=== PATIENT | male | born 1945 | race Caucasian/White ===

== ENCOUNTER 2020-10-29 12:26 | Inpatient (IN) ==
[2020-10-29] MEDS ORDERED: SODIUM CHLORIDE 0.9% 1,000 ML IV STA (12:57)
[2020-10-29 13:07] LABS: Basophils % 0.3 % (0.0-0.8); Eosinophils # 0.2 10*3/uL (0.0-0.87); Eosinophils % 2.4 % (0.00-10.9); Hematocrit 33.8 VOL% (42.0-52.0); Hemoglobin 11.9 GM/DL (14.0-18.0); Immature Granulocytes % 1.6 %; Immature Granulocytes Absolute 0.16 #; Lymphocytes # 0.4 10*3/uL (1.4-4.0); Lymphocytes % 3.6 % (21.2-54.2); Mean Corpuscular HGB Conc 35.2 GM/DL (32-36); Mean Corpuscular Volume 87.1 FL (87-102); Mean Platelet Volume 10.8 FL (9.6-12.0); Neutrophils % 87.1 % (38.7-73.9); Platelet Count 281 T/CUMM (130-400); Red Blood Count 3.88 MC/CUMM (3.8-5.5); Red Cell Distribution Width 14.2 % (9.3-17.3); White Blood Count 9.9 T/CUMM (4-12)
[2020-10-29 13:34] LABS: Albumin 2.3 G/DL (3.4-5.0); Bilirubin,Total 2.6 MG/DL (0.2-1.0); Calcium 9.3 MG/DL (8.5-10.1); Osmolality,Calculated 294.4 MOS/KG (273-304); Potassium 4.3 MMOL/L (3.5-5.1); Total Protein 6.4 G/DL (6.4-8.2)
[2020-10-29 13:37] LABS: Bacteria,Urine Occasional /HPF (Few); Bilirubin,Urine Negative (Negative); Blood, Urine Small mg/dL (Negative); Glucose,Urine (UA) Negative (Negative); Ketones,Urine Negative (Negative); Mucus,Urine Occasional /LPF (Occasional); Nitrite,Urine Negative (Negative); Protein,Urine Negative; RBC,Urine 1 /HPF (0-4); Urine Appearance CLEAR (Clear); Urine Color Amber (Yellow); Urine Specific Gravity 1.012 (1.001-1.035); WBC,Urine 9 /HPF (0-6)
[2020-10-29 13:50] LABS: Lymphocytes 7 % (20-55); Segmented Neutrophils 88 % (50-85); Total Cells Counted 100
[2020-10-29 13:51] LABS: Platelet Estimate Adequate
[2020-10-29] MEDS ORDERED: SODIUM CHLORIDE 0.9% 1,000 ML IV SCH (14:00)
[2020-10-29] MEDS ORDERED: MAGNESIUM HYDROXIDE SUSP 30 ML UDCUP PO PRN (17:23)
[2020-10-29] MEDS ORDERED: ACETAMINOPHEN 325 MG TABLET PO PRN (17:23)
[2020-10-29] MEDS ORDERED: ONDANSETRON 4 MG/2 ML VIAL IV PRN (17:23)
[2020-10-29] MEDS ORDERED: ZALEPLON 5 MG CAPSULE PO PRN (17:32)
[2020-10-29] MEDS: DEXTROSE 5% NACL 0.9% 1,000 ML IV SCH (18:18)
[2020-10-29] MEDS: cefTRIAXone 1,000 MG in SYRINGE 1 EACH IV SCH (18:18)
[2020-10-29] MEDS: DOCUSATE SODIUM 100 MG CAPSULE PO SCH (20:34)
[2020-10-30] MEDS: DEXTROSE 5% NACL 0.9% 1,000 ML IV SCH ×4 (00:44→23:12)
[2020-10-30 06:15] LABS: Basophils % 0.3 % (0.0-0.8); Eosinophils # 0.6 10*3/uL (0.0-0.87); Eosinophils % 6.1 % (0.00-10.9); Hematocrit 31.8 VOL% (42.0-52.0); Immature Granulocytes % 0.5 %; Immature Granulocytes Absolute 0.05 #; Lymphocytes # 0.4 10*3/uL (1.4-4.0); Lymphocytes % 4.4 % (21.2-54.2); Mean Corpuscular HGB Conc 34.6 GM/DL (32-36); Mean Corpuscular Volume 87.6 FL (87-102); Mean Platelet Volume 11.2 FL (9.6-12.0); Monocytes % 5.1 % (1.7-12.7); Neutrophils % 83.6 % (38.7-73.9); Platelet Count 252 T/CUMM (130-400); Red Blood Count 3.63 MC/CUMM (3.8-5.5); Red Cell Distribution Width 14.3 % (9.3-17.3)
[2020-10-30 06:52] LABS: Band Neutrophils 2 % (0-10); Eosinophils 3 % (0-10); Lymphocytes 6 % (20-55); Platelet Estimate Normal; Polychromasia Slight; Reactive Lymphocytes Few; Segmented Neutrophils 84 % (50-85); Total Cells Counted 100
[2020-10-30 06:53] LABS: Microcytosis Slight
[2020-10-30 07:10] LABS: Alanine Aminotransferase 128 U/L (16-61); Albumin 2.1 G/DL (3.4-5.0); Alkaline Phosphatase 182 U/L (45-117); Aspartate Amino Transferase 84 U/L (0-37); Blood Urea Nitrogen 86 MG/DL (7-18); Calcium 8.8 MG/DL (8.5-10.1); Carbon Dioxide 14 MMOL/L (21-32); Estimated Glom Filtration Rate 11 ML/MIN; Glucose 153 MG/DL (74-106); Potassium 4.1 MMOL/L (3.5-5.1); Sodium 136 MMOL/L (136-145); Triglycerides 295 MG/DL (2-150)
[2020-10-30 07:30] LABS: HDL Cholesterol < 10 MG/DL (40-60)
[2020-10-30] MEDS: LOSARTAN 50 MG TABLET PO SCH (08:20)
[2020-10-30] MEDS: DOCUSATE SODIUM 100 MG CAPSULE PO SCH ×2 (08:20→21:04)
[2020-10-30] MEDS: FENOFIBRATE 160 MG TABLET PO SCH (08:21)
[2020-10-30] MEDS: TAMSULOSIN 0.4 MG CAPSULE PO SCH (08:21)
[2020-10-30] MEDS: PANTOPRAZOLE 40 MG TABLET PO SCH (08:21)
[2020-10-30] MEDS: SIMVASTATIN 20 MG TABLET PO SCH (08:22)
[2020-10-30] MEDS ORDERED: PIPERACILLIN/TAZOBACTAM 3,375 MG in SODIUM CHLORIDE 0.9% 100 ML IV SCH (11:00)
[2020-10-30] MEDS ORDERED: MEROPENEM 500 MG in SODIUM CHLORIDE 0.9% 100 ML IV SCH (12:00)
[2020-10-30] MEDS: cefTRIAXone 1,000 MG in SYRINGE 1 EACH IV SCH (18:07)
[2020-10-31 05:01] LABS: Basophils # 0.1 10*3/uL (0.0-0.2); Basophils % 0.5 % (0.0-0.8); Eosinophils # 0.3 10*3/uL (0.0-0.87); Eosinophils % 3.1 % (0.00-10.9); Hematocrit 32.5 VOL% (42.0-52.0); Hemoglobin 11.5 GM/DL (14.0-18.0); Immature Granulocytes % 0.9 %; Immature Granulocytes Absolute 0.09 #; Lymphocytes # 0.5 10*3/uL (1.4-4.0); Lymphocytes % 5.2 % (21.2-54.2); Mean Corpuscular HGB Conc 35.4 GM/DL (32-36); Mean Corpuscular Volume 86.7 FL (87-102); Mean Platelet Volume 11.2 FL (9.6-12.0); Monocytes % 5.5 % (1.7-12.7); Neutrophils % 84.8 % (38.7-73.9); Platelet Count 260 T/CUMM (130-400); Red Blood Count 3.75 MC/CUMM (3.8-5.5); Red Cell Distribution Width 14.8 % (9.3-17.3); White Blood Count 10.1 T/CUMM (4-12)
[2020-10-31 05:23] LABS: Albumin 2.1 G/DL (3.4-5.0); Bilirubin,Total 2.6 MG/DL (0.2-1.0); Calcium 8.6 MG/DL (8.5-10.1); Osmolality,Calculated 294.7 MOS/KG (273-304); Potassium 4.6 MMOL/L (3.5-5.1); Total Protein 6.4 G/DL (6.4-8.2)
[2020-10-31 05:24] LABS: Uric Acid 5.4 MG/DL (3.5-7.2)
[2020-10-31] MEDS: DEXTROSE 5% NACL 0.9% 1,000 ML IV SCH ×2 (06:15→17:52)
[2020-10-31] MEDS: LOSARTAN 50 MG TABLET PO SCH (09:19)
[2020-10-31] MEDS: DOCUSATE SODIUM 100 MG CAPSULE PO SCH ×2 (09:19→23:15)
[2020-10-31] MEDS: PANTOPRAZOLE 40 MG TABLET PO SCH (09:19)
[2020-10-31] MEDS: FENOFIBRATE 160 MG TABLET PO SCH (09:19)
[2020-10-31] MEDS: TAMSULOSIN 0.4 MG CAPSULE PO SCH (09:19)
[2020-10-31] MEDS: SIMVASTATIN 20 MG TABLET PO SCH (09:46)
[2020-10-31] MEDS: methylPREDNISolone SOD SUC 40 MG/1 ML VIAL IV SCH ×2 (09:46→17:53)
[2020-10-31] MEDS ORDERED: chlordiazePOXIDE 25 MG CAPSULE PO PRN (10:39)
[2020-10-31] MEDS: THIAMINE 100 MG TABLET PO SCH (12:05)
[2020-10-31] MEDS: FOLIC ACID 1 MG TABLET PO SCH (12:05)
[2020-10-31] MEDS: MULTIVITAMIN (CENTRUM) TABLET PO SCH (12:05)
[2020-10-31] MEDS: cefTRIAXone 1,000 MG in SYRINGE 1 EACH IV SCH (17:53)
[2020-10-31] MEDS: CLORAZEPATE 3.75 MG TABLET PO SCH (23:16)
[2020-11-01] MEDS: DEXTROSE 5% NACL 0.9% 1,000 ML IV SCH ×5 (00:03→21:32)
[2020-11-01] MEDS: methylPREDNISolone SOD SUC 40 MG/1 ML VIAL IV SCH (01:07)
[2020-11-01 05:52] LABS: Basophils % 0.1 % (0.0-0.8); Hematocrit 35.9 VOL% (42.0-52.0); Hemoglobin 12.2 GM/DL (14.0-18.0); Immature Granulocytes % 1.1 %; Immature Granulocytes Absolute 0.11 #; Lymphocytes # 0.5 10*3/uL (1.4-4.0); Lymphocytes % 4.8 % (21.2-54.2); Mean Platelet Volume 11.5 FL (9.6-12.0); Monocytes % 2.3 % (1.7-12.7); Neutrophils % 91.7 % (38.7-73.9); Platelet Count 307 T/CUMM (130-400); Red Blood Count 3.99 MC/CUMM (3.8-5.5); Red Cell Distribution Width 14.9 % (9.3-17.3); White Blood Count 9.9 T/CUMM (4-12)
[2020-11-01 06:13] LABS: Albumin 2.1 G/DL (3.4-5.0); Bilirubin,Total 1.7 MG/DL (0.2-1.0); Calcium 9.1 MG/DL (8.5-10.1); Osmolality,Calculated 299.5 MOS/KG (273-304); Potassium 4.8 MMOL/L (3.5-5.1); Total Protein 6.9 G/DL (6.4-8.2); Uric Acid 4.8 MG/DL (3.5-7.2)
[2020-11-01 06:51] LABS: Hepatitis B Core IgM Quant 0.07 Index; Hepatitis B Surface Ag Quant < 0.10 Index; Hepatitis B Surface Ag Result Non-Reactive (NonReactive); Hepatitis C Virus Ab Quant 0.15 Index; Hepatitis C Virus Ab Result Non-Reactive (NonReactive)
[2020-11-01 07:03] LABS: Lymphocytes 9 % (20-55); Platelet Estimate Normal; Segmented Neutrophils 88 % (50-85); Total Cells Counted 100
[2020-11-01] MEDS: MULTIVITAMIN (CENTRUM) TABLET PO SCH (08:26)
[2020-11-01] MEDS: cloNIDine 0.1 MG TABLET PO SCH ×2 (08:26→21:36)
[2020-11-01] MEDS: LOSARTAN 50 MG TABLET PO SCH (08:26)
[2020-11-01] MEDS: FENOFIBRATE 160 MG TABLET PO SCH (08:26)
[2020-11-01] MEDS: PANTOPRAZOLE 40 MG TABLET PO SCH (08:26)
[2020-11-01] MEDS: CLORAZEPATE 3.75 MG TABLET PO SCH ×3 (08:27→21:36)
[2020-11-01] MEDS: DOCUSATE SODIUM 100 MG CAPSULE PO SCH ×2 (08:27→22:05)
[2020-11-01] MEDS: THIAMINE 100 MG TABLET PO SCH (08:27)
[2020-11-01] MEDS: TAMSULOSIN 0.4 MG CAPSULE PO SCH ×2 (08:27→21:36)
[2020-11-01] MEDS: allopurinoL 100 MG TABLET PO SCH ×2 (08:27→21:36)
[2020-11-01] MEDS: FOLIC ACID 1 MG TABLET PO SCH (08:29)
[2020-11-01] MEDS: SIMVASTATIN 20 MG TABLET PO SCH (08:29)
[2020-11-01] MEDS: cefTRIAXone 1,000 MG in SYRINGE 1 EACH IV SCH (18:04)
[2020-11-02] MEDS: DEXTROSE 5% NACL 0.9% 1,000 ML IV SCH ×3 (04:00→17:28)
[2020-11-02 05:41] LABS: Basophils % 0.2 % (0.0-0.8); Eosinophils # 0.1 10*3/uL (0.0-0.87); Eosinophils % 0.9 % (0.00-10.9); Hematocrit 30.2 VOL% (42.0-52.0); Hemoglobin 10.4 GM/DL (14.0-18.0); Immature Granulocytes % 2.6 %; Immature Granulocytes Absolute 0.22 #; Lymphocytes # 0.9 10*3/uL (1.4-4.0); Lymphocytes % 10.9 % (21.2-54.2); Mean Corpuscular HGB Conc 34.4 GM/DL (32-36); Mean Corpuscular Volume 88.6 FL (87-102); Mean Platelet Volume 11.1 FL (9.6-12.0); Neutrophils % 79.4 % (38.7-73.9); Platelet Count 360 T/CUMM (130-400); Red Blood Count 3.41 MC/CUMM (3.8-5.5); Red Cell Distribution Width 15.2 % (9.3-17.3); White Blood Count 8.5 T/CUMM (4-12)
[2020-11-02 05:57] LABS: Albumin 1.8 G/DL (3.4-5.0); Osmolality,Calculated 297.5 MOS/KG (273-304); Potassium 4.5 MMOL/L (3.5-5.1); Total Protein 5.8 G/DL (6.4-8.2)
[2020-11-02 06:03] LABS: Hypochromasia 1+; Lymphocytes 8 % (20-55); Microcytosis 1+; Platelet Estimate Adequate; Segmented Neutrophils 86 % (50-85); Total Cells Counted 100
[2020-11-02] MEDS: methylPREDNISolone SOD SUC 40 MG/1 ML VIAL IV SCH ×2 (08:30→21:21)
[2020-11-02] MEDS: MULTIVITAMIN (CENTRUM) TABLET PO SCH (08:31)
[2020-11-02] MEDS: allopurinoL 100 MG TABLET PO SCH ×2 (08:31→21:16)
[2020-11-02] MEDS: SIMVASTATIN 20 MG TABLET PO SCH (08:31)
[2020-11-02] MEDS: cloNIDine 0.1 MG TABLET PO SCH ×2 (08:31→21:16)
[2020-11-02] MEDS: FENOFIBRATE 160 MG TABLET PO SCH (08:31)
[2020-11-02] MEDS: DOCUSATE SODIUM 100 MG CAPSULE PO SCH ×2 (08:31→21:16)
[2020-11-02] MEDS: TAMSULOSIN 0.4 MG CAPSULE PO SCH ×2 (08:31→21:16)
[2020-11-02] MEDS: LOSARTAN 50 MG TABLET PO SCH (08:31)
[2020-11-02] MEDS: PANTOPRAZOLE 40 MG TABLET PO SCH (08:31)
[2020-11-02] MEDS: THIAMINE 100 MG TABLET PO SCH (08:31)
[2020-11-02] MEDS: FOLIC ACID 1 MG TABLET PO SCH (08:32)
[2020-11-02] MEDS: CLORAZEPATE 3.75 MG TABLET PO SCH ×4 (08:32→21:16)
[2020-11-02] MEDS: cefTRIAXone 1,000 MG in SYRINGE 1 EACH IV SCH (17:28)
[2020-11-03] MEDS: DEXTROSE 5% NACL 0.9% 1,000 ML IV SCH ×2 (00:15→06:54)
[2020-11-03 05:02] LABS: Basophils % 0.3 % (0.0-0.8); Hematocrit 29.5 VOL% (42.0-52.0); Hemoglobin 10.2 GM/DL (14.0-18.0); Immature Granulocytes % 4.1 %; Lymphocytes # 0.5 10*3/uL (1.4-4.0); Lymphocytes % 6.6 % (21.2-54.2); Mean Corpuscular HGB Conc 34.6 GM/DL (32-36); Mean Corpuscular Volume 87.5 FL (87-102); Mean Platelet Volume 11.1 FL (9.6-12.0); Monocytes % 2.7 % (1.7-12.7); Neutrophils % 86.3 % (38.7-73.9); Platelet Count 339 T/CUMM (130-400); Red Blood Count 3.37 MC/CUMM (3.8-5.5); Red Cell Distribution Width 15.1 % (9.3-17.3); White Blood Count 7.3 T/CUMM (4-12)
[2020-11-03 05:42] LABS: Albumin 1.8 G/DL (3.4-5.0); Bilirubin,Total 1.6 MG/DL (0.2-1.0); Calcium 8.9 MG/DL (8.5-10.1); Osmolality,Calculated 298.5 MOS/KG (273-304); Potassium 5.1 MMOL/L (3.5-5.1)
[2020-11-03] MEDS: methylPREDNISolone SOD SUC 40 MG/1 ML VIAL IV SCH (08:16)
[2020-11-03] MEDS: cloNIDine 0.1 MG TABLET PO SCH (08:20)
[2020-11-03] MEDS: SIMVASTATIN 20 MG TABLET PO SCH (08:21)
[2020-11-03] MEDS: CLORAZEPATE 3.75 MG TABLET PO SCH (08:21)
[2020-11-03] MEDS: FENOFIBRATE 160 MG TABLET PO SCH (08:23)
[2020-11-03] MEDS: MULTIVITAMIN (CENTRUM) TABLET PO SCH (08:23)
[2020-11-03] MEDS: THIAMINE 100 MG TABLET PO SCH (08:24)
[2020-11-03] MEDS: allopurinoL 100 MG TABLET PO SCH (08:24)
[2020-11-03] MEDS: PANTOPRAZOLE 40 MG TABLET PO SCH (08:24)
[2020-11-03] MEDS: DOCUSATE SODIUM 100 MG CAPSULE PO SCH (08:25)
[2020-11-03] MEDS: TAMSULOSIN 0.4 MG CAPSULE PO SCH (08:25)
[2020-11-03] MEDS: FOLIC ACID 1 MG TABLET PO SCH (08:28)
[2020-11-03] MEDS: LOSARTAN 50 MG TABLET PO SCH (08:29)
[2020-11-03] MEDS ORDERED: SULFAMETHOX/TRIMETHOPRIM 400-80 MG TABLET PO SCH (11:00)
[2020-11-03] MEDS ORDERED: predniSONE 10 MG TABLET PO SCH (11:00)
[2020-11-03 11:11] VITALS: BP 148/74
== END 2020-11-03 13:14 | disposition home or self-care (01) | DRG 862 ==
LOC: EDUNIT# → EDBD → N.ED 12:26 → N.EDINP 13:57 → N.5E 15:27
PROVIDERS: ADMIT Family Medicine; ATTEND Family Medicine

== ENCOUNTER 2020-12-15 05:51 | Inpatient (IN) ==
[2020-12-15] MEDS ORDERED: POTASSIUM CHLORIDE RIDER 10 MEQ in PREMIX 1 EACH IV PRN (06:19)
[2020-12-15] MEDS ORDERED: MAGNESIUM SULF RIDER 2 GM/50 ML PREMIX IV PRN (06:19)
[2020-12-15] MEDS ORDERED: diphenhydrAMINE CAP 50 MG CAPSULE PO ONE (06:19)
[2020-12-15] MEDS ORDERED: ASPIRIN 325 MG TABLET PO ONE (06:19)
[2020-12-15] MEDS ORDERED: DIAZEPAM 5 MG TABLET PO ONE (06:19)
[2020-12-15] MEDS ORDERED: DIAZEPAM 5 MG TABLET ONE (06:28)
[2020-12-15] MEDS ORDERED: diphenhydrAMINE CAP 50 MG CAPSULE ONE (06:28)
[2020-12-15] MEDS ORDERED: ASPIRIN 325 MG TABLET ONE (06:28)
[2020-12-15] MEDS: SODIUM CHLORIDE 0.9% 1,000 ML IV SCH ×3 (06:31→16:56)
[2020-12-15] MEDS ORDERED: LIDOCAINE 1% 20 ML VIAL ONE (06:48)
[2020-12-15] MEDS ORDERED: HEPARIN/NACL 0.9% 2 UNITS/ML 2,000 UNIT/1,000 ML BAG IV ONE (06:48)
[2020-12-15] MEDS ORDERED: MIDAZOLAM 2 MG/2 ML VIAL ONE (07:14)
[2020-12-15] MEDS ORDERED: NITROGLYCERIN DRIP 50 MG/250 ML BOTTLE IV ONE ×2 (07:14→08:02)
[2020-12-15] MEDS ORDERED: VERAPAMIL 5 MG/2 ML VIAL ONE (07:15)
[2020-12-15] MEDS ORDERED: HYDROmorphone 2 MG/1 ML VIAL ONE (07:15)
[2020-12-15] MEDS ORDERED: diphenhydrAMINE 50 MG/1 ML VIAL ONE (07:27)
[2020-12-15] MEDS ORDERED: ENOXAPARIN 30 MG/0.3 ML SYRINGE ONE (07:30)
[2020-12-15] MEDS ORDERED: NITROGLYCERIN SL 0.4 MG TABLET SL ONE (07:47)
[2020-12-15] MEDS ORDERED: HEPARIN DRIP 25,000 UNITS/500 ML PREMIX IV ONE (08:02)
[2020-12-15] MEDS ORDERED: HEPARIN 5,000 UNIT/1 ML VIAL ONE (08:02)
[2020-12-15] MEDS ORDERED: HEPARIN 5,000 UNIT/1 ML VIAL IV ONE ×2 (08:08→20:36)
[2020-12-15] MEDS: NITROGLYCERIN DRIP 50 MG/250 ML BOTTLE IV PRN (08:26)
[2020-12-15] MEDS: HEPARIN DRIP 25,000 UNITS/500 ML PREMIX IV SCH (08:34)
[2020-12-15] MEDS ORDERED: PNEUMOCOCCAL VACCINE (13 VALENT) 0.5 ML SYRINGE IM ONE (09:21)
[2020-12-15] MEDS ORDERED: DEXTROSE 50% 25 GM/50 ML VIAL IV PRN (12:29)
[2020-12-15] MEDS ORDERED: GLUCAGON 1 MG VIAL IM PRN (12:29)
[2020-12-15] MEDS: LOSARTAN 50 MG TABLET PO SCH (13:57)
[2020-12-15] MEDS: cloNIDine 0.1 MG TABLET PO SCH (20:51)
[2020-12-16] MEDS: SODIUM CHLORIDE 0.9% 1,000 ML IV SCH ×2 (02:32→14:45)
[2020-12-16] MEDS: HEPARIN 5,000 UNIT/1 ML VIAL IV PRN ×2 (03:05→17:32)
[2020-12-16 06:51] LABS: Basophils # 0.1 10*3/uL (0.0-0.2); Basophils % 0.8 % (0.0-0.8); Eosinophils # 0.3 10*3/uL (0.0-0.87); Eosinophils % 3.2 % (0.00-10.9); Hematocrit 33.6 VOL% (42.0-52.0); Hemoglobin 10.9 GM/DL (14.0-18.0); Immature Granulocytes % 1.2 %; Immature Granulocytes Absolute 0.09 #; Lymphocytes # 1.4 10*3/uL (1.4-4.0); Lymphocytes % 18.3 % (21.2-54.2); Mean Corpuscular HGB Conc 32.4 GM/DL (32-36); Mean Corpuscular Volume 94.4 FL (87-102); Mean Platelet Volume 10.5 FL (9.6-12.0); Monocytes % 7.2 % (1.7-12.7); Neutrophils % 69.3 % (38.7-73.9); Platelet Count 191 T/CUMM (130-400); Red Blood Count 3.56 MC/CUMM (3.8-5.5); Red Cell Distribution Width 15.8 % (9.3-17.3); White Blood Count 7.7 T/CUMM (4-12)
[2020-12-16 07:23] LABS: Albumin 3.1 G/DL (3.4-5.0); Bilirubin,Total 0.4 MG/DL (0.2-1.0); Calcium 9.1 MG/DL (8.5-10.1); Osmolality,Calculated 287.3 MOS/KG (273-304)
[2020-12-16] MEDS ORDERED: CLORAZEPATE 3.75 MG TABLET PO PRN (08:10)
[2020-12-16] MEDS: cloNIDine 0.1 MG TABLET PO SCH ×2 (08:22→20:21)
[2020-12-16] MEDS: LOSARTAN 50 MG TABLET PO SCH (08:22)
[2020-12-16] MEDS: CHLORHEXIDINE 0.12% ORAL RINSE 60 ML BOTTLE SWISH/SPIT SCH ×2 (08:22→20:21)
[2020-12-16 09:34] LABS: ABG Base Excess -3.5 MMOL/L (-2.5-2.5); ABG HCO3 20.4 MMOL/L (20-26); ABG Oxygen Saturation 96.5 % (95-100); ABG PCO2 32.8 MM HG (35-48); ABG PH 7.411 (7.35-7.45); ABG PO2 86.3 MM HG (80-95); ABG TCO2 21.4 MMOL/L (23-27); Allen Test Positive
[2020-12-16] MEDS: NITROGLYCERIN DRIP 50 MG/250 ML BOTTLE IV PRN (10:51)
[2020-12-16] MEDS: HEPARIN DRIP 25,000 UNITS/500 ML PREMIX IV SCH (14:13)
[2020-12-16] MEDS ORDERED: FAMOTIDINE 20 MG TABLET PO ONE (15:06)
[2020-12-16] MEDS ORDERED: DIAZEPAM 5 MG TABLET PO ONE (15:06)
[2020-12-16] MEDS: CHLORHEXIDINE 4% SOLN 118 ML BOTTLE TOP SCH ×2 (15:26→20:34)
[2020-12-16] MEDS: ASPIRIN EC 81 MG TABLET PO SCH (17:25)
[2020-12-16] MEDS: METOPROLOL TARTRATE 25 MG TABLET PO SCH ×2 (17:25→20:21)
[2020-12-16] MEDS: ASCORBIC ACID 500 MG TABLET PO SCH ×2 (17:26→20:21)
[2020-12-16] MEDS ORDERED: ROSUVASTATIN 20 MG TABLET PO SCH (21:00)
[2020-12-17] MEDS: SODIUM CHLORIDE 0.9% 1,000 ML IV SCH ×2 (02:00→12:54)
[2020-12-17] MEDS ORDERED: PAPAVERINE 60 MG/2 ML VIAL ONE (04:33)
[2020-12-17] MEDS ORDERED: VANCOMYCIN 500 MG VIAL ONE (04:34)
[2020-12-17] MEDS ORDERED: VANCOMYCIN 1,000 MG VIAL ONE (04:34)
[2020-12-17] MEDS: CHLORHEXIDINE 4% SOLN 118 ML BOTTLE TOP SCH ×2 (04:43→12:50)
[2020-12-17] MEDS ORDERED: SODIUM CHLORIDE 0.9% 1,000 ML IV SCH (05:00)
[2020-12-17] MEDS ORDERED: CEFUROXIME INJ 1,500 MG in SODIUM CHLORIDE 0.9% 100 ML IV ONE (05:00)
[2020-12-17] MEDS ORDERED: DIAZEPAM 5 MG TABLET PO ONE (06:00)
[2020-12-17] MEDS ORDERED: FAMOTIDINE 20 MG TABLET PO ONE (06:00)
[2020-12-17] MEDS ORDERED: AMINOCAPROIC ACID 5,000 MG/20 ML VIAL ONE (06:32)
[2020-12-17] MEDS ORDERED: PHENYLEPHRINE DRIP 20 MG/250 ML PREMIX IV ONE (06:32)
[2020-12-17] MEDS ORDERED: ETOMIDATE 40 MG/20 ML VIAL IV ONE (06:32)
[2020-12-17] MEDS ORDERED: CALCIUM CHLORIDE 1,000 MG/10 ML VIAL IV ONE (06:32)
[2020-12-17] MEDS ORDERED: LIDOCAINE 2% 5 ML VIAL ONE ×2 (06:32→11:05)
[2020-12-17] MEDS ORDERED: SODIUM CHLORIDE 0.9% 1,000 ML IV ONE (06:32)
[2020-12-17] MEDS ORDERED: LACTATED RINGERS 1,000 ML IV ONE (06:32)
[2020-12-17] MEDS ORDERED: HEPARIN/NACL 0.9% 2 UNITS/ML 1,000 UNIT/500 ML BAG IV ONE (06:32)
[2020-12-17] MEDS ORDERED: SODIUM CHLORIDE 0.9% 250 ML IV ONE (06:32)
[2020-12-17] MEDS ORDERED: SEVOFLURANE 1 UNIT/15 MINUTE INH ONE (06:32)
[2020-12-17] MEDS ORDERED: MINERAL OIL/PETROLATUM OPH OINT 3.5 GM TUBE ONE (06:32)
[2020-12-17] MEDS ORDERED: VECURONIUM 10 MG VIAL IV ONE (06:32)
[2020-12-17] MEDS ORDERED: NITROGLYCERIN DRIP 50 MG/250 ML BOTTLE IV ONE (06:32)
[2020-12-17] MEDS ORDERED: MIDAZOLAM 10 MG/2 ML VIAL ONE ×3 (06:33)
[2020-12-17] MEDS ORDERED: SUFentanil 250 MCG/5 ML AMP ONE (06:33)
[2020-12-17] MEDS ORDERED: ePHEDrine 50 MG/ML VIAL ONE (06:33)
[2020-12-17 07:37] LABS: ABG HCO3 21.1 MMOL/L (20-26); ABG PCO2 35.2 MM HG (35-48); ABG PH 7.376 (7.35-7.45); ABG TCO2 18.9 MMOL/L (23-27); Glucose Heart Surgery 148 MG/DL (74-106); Hematocrit Heart Surgery 29.3 PERCENT (42-52); Hemoglobin Heart Surgery 9.5 G/DL (14.0-18.0); Ionized Calcium Arterial 1.29 MMOL/L (1.21-1.46); PCO2 Patient Temp Arterial 35.2 MMHG; PH Patient Temp Arterial 7.376; Patient Temperature 37 CELCIUS; Potassium Heart/CVR 3.7 MMOL/L (3.5-5.1); Sodium Heart/CVR 138 MMOL/L (135-145)
[2020-12-17 08:18] LABS: Bacteria,Urine Occasional /HPF (Few); Bilirubin,Urine Negative (Negative); Blood, Urine Negative (Negative); Glucose,Urine (UA) Negative (Negative); Hyaline Casts,Urine 1 /LPF (0-3); Ketones,Urine Negative (Negative); Mucus,Urine Occasional /LPF (Occasional); Nitrite,Urine Negative (Negative); Protein,Urine Negative; RBC,Urine 1 /HPF (0-4); Urine Appearance CLEAR (Clear); Urine Color Straw (Yellow); Urine Specific Gravity 1.009 (1.001-1.035); Urine Urobilinogen < 2.0 EU/DL (0.2-1.0)
[2020-12-17 09:08] LABS: Hematocrit Heart Surgery 20.2 PERCENT (42-52); PCO2 Patient Temp Venous 34.1 MM HG; PH Patient Temp Venous 7.404; PO2 Patient Temp Venous 36.2 MM HG; VBG Base Excess -2.9 MEQ/L (0-4); VBG HCO3 21.8 MEQ/L (24-28); VBG PCO2 37.6 MMHG (41-51); VBG PH 7.375; VBG PO2 41.6 MMHG (17-40)
[2020-12-17 09:37] LABS: Hematocrit Heart Surgery 20.6 PERCENT (42-52); Hemoglobin Heart Surgery 6.6 G/DL (14.0-18.0); PCO2 Patient Temp Venous 33.9 MM HG; PH Patient Temp Venous 7.398; PO2 Patient Temp Venous 37.9 MM HG; Potassium Heart/CVR 4.1 MMOL/L (3.5-5.1); VBG Base Excess -3.3 MEQ/L (0-4); VBG HCO3 21.5 MEQ/L (24-28); VBG Oxygen Saturation 82.5 %; VBG PCO2 39.2 MMHG (41-51); VBG PH 7.355; VBG PO2 46.5 MMHG (17-40); VBG Total CO2 20.9 MMOL/L
[2020-12-17] MEDS ORDERED: ESMOLOL 100 MG/10 ML VIAL IV ONE (10:05)
[2020-12-17 10:15] LABS: Hematocrit Heart Surgery 23.6 PERCENT (42-52); Hemoglobin Heart Surgery 7.6 G/DL (14.0-18.0); PCO2 Patient Temp Venous 34.5 MM HG; PH Patient Temp Venous 7.417; PO2 Patient Temp Venous 33.5 MM HG; Potassium Heart/CVR 4.2 MMOL/L (3.5-5.1); VBG Base Excess -1.8 MEQ/L (0-4); VBG HCO3 22.7 MEQ/L (24-28); VBG Oxygen Saturation 76.8 %; VBG PCO2 39.9 MMHG (41-51); VBG PH 7.373; VBG PO2 41.2 MMHG (17-40); VBG Total CO2 21.9 MMOL/L
[2020-12-17] MEDS ORDERED: PHENYLEPHRINE DRIP 40 MG/250 ML PREMIX IV ONE (10:28)
[2020-12-17] MEDS ORDERED: THROMBIN TOPICAL (RECOMBINANT) 5,000 UNIT VIAL TOP ONE (10:29)
[2020-12-17 10:37] LABS: PCO2 Patient Temp Venous 41.3 MM HG; PH Patient Temp Venous 7.355; PO2 Patient Temp Venous 39.6 MM HG; Potassium Heart/CVR 4.2 MMOL/L (3.5-5.1); VBG Base Excess -2.2 MEQ/L (0-4); VBG HCO3 22.2 MEQ/L (24-28); VBG Oxygen Saturation 72.7 %; VBG PCO2 41.3 MMHG (41-51); VBG PH 7.355; VBG PO2 39.6 MMHG (17-40)
[2020-12-17 11:03] LABS: ABG Base Excess -3.3 MMOL/L (-2.5-2.5); ABG HCO3 21.6 MMOL/L (20-26); ABG Oxygen Saturation 97.8 % (95-100); ABG PH 7.373 (7.35-7.45); ABG PO2 89.1 MM HG (80-95); ABG TCO2 20.3 MMOL/L (23-27); Glucose Heart Surgery 255 MG/DL (74-106); Hematocrit Heart Surgery 22.9 PERCENT (42-52); Hemoglobin Heart Surgery 7.3 G/DL (14.0-18.0); Ionized Calcium Arterial 1.25 MMOL/L (1.21-1.46); PH Patient Temp Arterial 7.373; PO2 Patient Temp Arterial 89.1 MM HG; Patient Temperature 37 CELCIUS; Potassium Heart/CVR 3.8 MMOL/L (3.5-5.1); Sodium Heart/CVR 135 MMOL/L (135-145)
[2020-12-17] MEDS ORDERED: ALBUMIN 25% 25 GM/100 ML VIAL IV ONE (11:05)
[2020-12-17] MEDS ORDERED: MANNITOL 100 GM/500 ML BAG IV ONE (11:06)
[2020-12-17] MEDS ORDERED: DEXTROSE 5% KCL 20 MEQ 20 MEQ/1,000 ML BAG IV ONE (11:06)
[2020-12-17] MEDS ORDERED: methylPREDNISolone SOD SUC 1,000 MG/8 ML VIAL ONE (11:06)
[2020-12-17] MEDS ORDERED: FUROSEMIDE 20 MG/2 ML VIAL ONE (11:06)
[2020-12-17] MEDS ORDERED: PROTAMINE SULFATE 250 MG/25 ML VIAL IV ONE (11:06)
[2020-12-17] MEDS ORDERED: HEPARIN 10,000 UNIT/10 ML VIAL ONE (11:06)
[2020-12-17] MEDS ORDERED: SODIUM BICARBONATE 50 MEQ/50 ML VIAL IV ONE ×2 (11:07→11:13)
[2020-12-17] MEDS ORDERED: NITROPRUSSIDE 50 MG/2 ML VIAL ONE (11:51)
[2020-12-17] MEDS ORDERED: INSULIN REGULAR 100 UNIT/ML IV PRN (11:55)
[2020-12-17] MEDS ORDERED: INSULIN REGULAR 100 UNIT/ML IV ONE (11:55)
[2020-12-17] MEDS ORDERED: MAGNESIUM SULF RIDER 2 GM/50 ML PREMIX IV PRN (11:55)
[2020-12-17] MEDS ORDERED: CALCIUM CHLORIDE 1,000 MG/10 ML SYRINGE IV PRN (11:55)
[2020-12-17] MEDS ORDERED: MIDAZOLAM 2 MG/2 ML VIAL IV PRN (11:55)
[2020-12-17] MEDS ORDERED: MORPHINE 10 MG/1 ML VIAL IV PRN (11:55)
[2020-12-17] MEDS ORDERED: DEXTROSE 50% 25 GM/50 ML VIAL IV PRN ×2 (11:55)
[2020-12-17] MEDS ORDERED: MIDAZOLAM 10 MG/2 ML VIAL IV PRN (11:55)
[2020-12-17] MEDS ORDERED: VECURONIUM 10 MG VIAL IV PRN ×2 (11:55)
[2020-12-17] MEDS ORDERED: MAGNESIUM SULF RIDER 4 GM/100 ML PREMIX IV PRN (11:55)
[2020-12-17] MEDS ORDERED: ACETAMINOPHEN 650 MG SUPP RECTAL PRN (11:55)
[2020-12-17] MEDS ORDERED: ONDANSETRON 4 MG/2 ML VIAL IV PRN (11:55)
[2020-12-17] MEDS ORDERED: LACTATED RINGERS 250 ML IV PRN (11:55)
[2020-12-17] MEDS ORDERED: PHENYLEPHRINE DRIP 40 MG/250 ML PREMIX IV PRN (11:55)
[2020-12-17] MEDS: NITROPRUSSIDE 100 MG in DEXTROSE 5% 250 ML IV PRN ×2 (11:58→23:33)
[2020-12-17] MEDS ORDERED: INSULIN REGULAR DRIP 100 ML IV SCH (12:00)
[2020-12-17] MEDS ORDERED: SODIUM CHLORIDE 0.45% 1,000 ML IV SCH ×2 (12:00)
[2020-12-17] MEDS: LACTATED RINGERS 1,000 ML IV PRN ×3 (12:20→19:05)
[2020-12-17 12:36] LABS: ABG Base Excess -1.1 MMOL/L (-2.5-2.5); ABG HCO3 23.5 MMOL/L (20-26); ABG PH 7.423 (7.35-7.45); Glucose Heart Surgery 231 MG/DL (74-106); Hematocrit Heart Surgery 28.6 PERCENT (42-52); Hemoglobin Heart Surgery 9.2 G/DL (14.0-18.0); Potassium Heart/CVR 3.6 MMOL/L (3.5-5.1)
[2020-12-17 12:45] LABS: Basophils % 0.4 % (0.0-0.8); Eosinophils # 0.1 10*3/uL (0.0-0.87); Eosinophils % 0.9 % (0.00-10.9); Hematocrit 25.3 VOL% (42.0-52.0); Hemoglobin 8.5 GM/DL (14.0-18.0); Immature Granulocytes Absolute 0.07 #; Lymphocytes # 0.6 10*3/uL (1.4-4.0); Lymphocytes % 8.9 % (21.2-54.2); Mean Corpuscular HGB Conc 33.6 GM/DL (32-36); Mean Platelet Volume 10.7 FL (9.6-12.0); Neutrophils % 83.8 % (38.7-73.9); Platelet Count 104 T/CUMM (130-400); Red Blood Count 2.72 MC/CUMM (3.8-5.5); Red Cell Distribution Width 15.8 % (9.3-17.3); White Blood Count 6.9 T/CUMM (4-12)
[2020-12-17] MEDS: METOPROLOL TARTRATE 25 MG TABLET PO SCH ×3 (12:51→20:09)
[2020-12-17] MEDS: CHLORHEXIDINE 0.12% ORAL RINSE 60 ML BOTTLE SWISH/SPIT SCH ×2 (12:51→20:08)
[2020-12-17] MEDS: ASCORBIC ACID 500 MG TABLET PO SCH (12:51)
[2020-12-17 12:52] LABS: INR 1.2; PT Patient Result 13.5 SECS (10.5-12.0); Partial Thromboplastin Time 29.6 SECS (23.9-33.8)
[2020-12-17] MEDS: ASPIRIN EC 81 MG TABLET PO SCH (12:52)
[2020-12-17] MEDS: LOSARTAN 50 MG TABLET PO SCH (12:52)
[2020-12-17] MEDS: cloNIDine 0.1 MG TABLET PO SCH (12:52)
[2020-12-17] MEDS: HEPARIN DRIP 25,000 UNITS/500 ML PREMIX IV SCH (12:55)
[2020-12-17 13:00] LABS: Albumin 2.7 G/DL (3.4-5.0); Bilirubin,Total 0.4 MG/DL (0.2-1.0); Calcium 8.6 MG/DL (8.5-10.1); Osmolality,Calculated 288.4 MOS/KG (273-304); Potassium 3.7 MMOL/L (3.5-5.1); Total Protein 5.1 G/DL (6.4-8.2)
[2020-12-17] MEDS: POTASSIUM CHLORIDE RIDER 20 MEQ in PREMIX 1 EACH IV PRN ×3 (13:02→17:30)
[2020-12-17 13:52] LABS: High Sensitive Troponin I* 2808.3 ng/L (0-78)
[2020-12-17] MEDS: POTASSIUM CHLORIDE RIDER 10 MEQ in PREMIX 1 EACH IV PRN ×2 (14:00→16:00)
[2020-12-17 14:44] LABS: ABG Base Excess -1.7 MMOL/L (-2.5-2.5); ABG Oxygen Saturation 99.4 % (95-100); ABG PCO2 34.5 MM HG (35-48); ABG PH 7.418 (7.35-7.45); ABG TCO2 20.3 MMOL/L (23-27); Glucose Heart Surgery 211 MG/DL (74-106); Hemoglobin Heart Surgery 9.7 G/DL (14.0-18.0); Potassium Heart/CVR 3.7 MMOL/L (3.5-5.1)
[2020-12-17] MEDS: ALBUMIN 5% 12.5 GM/250 ML VIAL IV PRN ×2 (15:24→15:55)
[2020-12-17 17:09] LABS: ABG HCO3 21.9 MMOL/L (20-26); ABG Oxygen Saturation 98.1 % (95-100); ABG PCO2 35.2 MM HG (35-48); ABG PH 7.392 (7.35-7.45); ABG PO2 92.2 MM HG (80-95); ABG TCO2 19.6 MMOL/L (23-27); Glucose Heart Surgery 185 MG/DL (74-106); Hematocrit Heart Surgery 29.3 PERCENT (42-52); Hemoglobin Heart Surgery 9.5 G/DL (14.0-18.0)
[2020-12-17] MEDS: MORPHINE 4 MG/1 ML VIAL IV PRN ×3 (18:10→23:58)
[2020-12-17 19:07] LABS: ABG HCO3 20.6 MMOL/L (20-26); ABG Oxygen Saturation 96.6 % (95-100); ABG PH 7.376 (7.35-7.45); ABG PO2 92.2 MM HG (80-95); ABG TCO2 21.7 MMOL/L (23-27); Glucose Heart Surgery 157 MG/DL (74-106); Potassium Heart/CVR 4.3 MMOL/L (3.5-5.1)
[2020-12-17] MEDS ORDERED: FUROSEMIDE 40 MG/4 ML VIAL IV PRN (19:28)
[2020-12-17] MEDS: CEFUROXIME INJ 1,500 MG in SODIUM CHLORIDE 0.9% 100 ML IV SCH (20:45)
[2020-12-17 20:46] LABS: ABG HCO3 21.9 MMOL/L (20-26); ABG Oxygen Saturation 95.6 % (95-100); ABG PCO2 37.1 MM HG (35-48); ABG PH 7.375 (7.35-7.45); ABG PO2 75.4 MM HG (80-95); ABG TCO2 19.4 MMOL/L (23-27); Glucose Heart Surgery 175 MG/DL (74-106); Hematocrit Heart Surgery 35.6 PERCENT (42-52); Hemoglobin Heart Surgery 11.6 G/DL (14.0-18.0); Potassium Heart/CVR 4.2 MMOL/L (3.5-5.1)
[2020-12-17 21:06] LABS: CKMB % 4.7 %
[2020-12-17 22:07] LABS: ABG HCO3 21.9 MMOL/L (20-26); ABG Oxygen Saturation 96.8 % (95-100); ABG PCO2 36.3 MM HG (35-48); ABG PH 7.382 (7.35-7.45); ABG PO2 82.7 MM HG (80-95); ABG TCO2 19.4 MMOL/L (23-27); Glucose Heart Surgery 172 MG/DL (74-106); Hematocrit Heart Surgery 34.2 PERCENT (42-52); Hemoglobin Heart Surgery 11.1 G/DL (14.0-18.0)
[2020-12-17 23:38] LABS: ABG Base Excess -3.6 MMOL/L (-2.5-2.5); ABG HCO3 21.4 MMOL/L (20-26); ABG Oxygen Saturation 96.2 % (95-100); ABG PCO2 36.7 MM HG (35-48); ABG PO2 79.7 MM HG (80-95); Glucose Heart Surgery 154 MG/DL (74-106); Hematocrit Heart Surgery 35.5 PERCENT (42-52); Hemoglobin Heart Surgery 11.5 G/DL (14.0-18.0)
[2020-12-18 03:15] LABS: ABG Base Excess -3.7 MMOL/L (-2.5-2.5); ABG HCO3 21.3 MMOL/L (20-26); ABG Oxygen Saturation 96.5 % (95-100); ABG PCO2 34.2 MM HG (35-48); ABG PH 7.387 (7.35-7.45); ABG PO2 80.4 MM HG (80-95); ABG TCO2 18.4 MMOL/L (23-27); Glucose Heart Surgery 156 MG/DL (74-106); Hematocrit Heart Surgery 35.4 PERCENT (42-52); Hemoglobin Heart Surgery 11.5 G/DL (14.0-18.0); Potassium Heart/CVR 4.3 MMOL/L (3.5-5.1)
[2020-12-18] MEDS: MORPHINE 4 MG/1 ML VIAL IV PRN ×2 (03:22→08:39)
[2020-12-18 03:24] LABS: Basophils % 0.1 % (0.0-0.8); Hemoglobin 11.3 GM/DL (14.0-18.0); Immature Granulocytes % 0.6 %; Immature Granulocytes Absolute 0.07 #; Lymphocytes # 0.4 10*3/uL (1.4-4.0); Mean Corpuscular HGB Conc 33.2 GM/DL (32-36); Mean Corpuscular Volume 93.2 FL (87-102); Mean Platelet Volume 11.5 FL (9.6-12.0); Monocytes % 4.5 % (1.7-12.7); Neutrophils % 90.8 % (38.7-73.9); Platelet Count 103 T/CUMM (130-400); Red Blood Count 3.65 MC/CUMM (3.8-5.5); Red Cell Distribution Width 15.1 % (9.3-17.3); White Blood Count 11.1 T/CUMM (4-12)
[2020-12-18 03:40] LABS: Alanine Aminotransferase 22 U/L (16-61); Albumin 3.2 G/DL (3.4-5.0); Alkaline Phosphatase 31 U/L (45-117); Aspartate Amino Transferase 31 U/L (0-37); Bilirubin,Total < 0.39 MG/DL (0.2-1.0); Blood Urea Nitrogen 20 MG/DL (7-18); CKMB % 4.8 %; Calcium 8.9 MG/DL (8.5-10.1); Carbon Dioxide 22 MMOL/L (21-32); Estimated Glom Filtration Rate 54 ML/MIN; Glucose 135 MG/DL (74-106); Osmolality,Calculated 281.5 MOS/KG (273-304); Potassium 4.4 MMOL/L (3.5-5.1); Sodium 139 MMOL/L (136-145); Total Protein 5.9 G/DL (6.4-8.2)
[2020-12-18 03:50] LABS: Band Neutrophils 3 % (0-10); Lymphocytes 2 % (20-55); Platelet Estimate Adequate; Segmented Neutrophils 95 % (50-85); Total Cells Counted 100
[2020-12-18 06:11] LABS: Hemoglobin Heart Surgery 6.4 G/DL (14.0-18.0)
[2020-12-18] MEDS: CEFUROXIME INJ 1,500 MG in SODIUM CHLORIDE 0.9% 100 ML IV SCH ×2 (08:16→20:57)
[2020-12-18] MEDS: CHLORHEXIDINE 0.12% ORAL RINSE 60 ML BOTTLE SWISH/SPIT SCH ×3 (08:17→20:55)
[2020-12-18] MEDS: METOPROLOL TARTRATE 25 MG TABLET PO SCH ×2 (08:17→20:54)
[2020-12-18] MEDS ORDERED: oxyCODONE/ACETAMINOPHEN 5-325 MG TABLET PO PRN (08:53)
[2020-12-18] MEDS ORDERED: COLCHICINE 0.6 MG CAPSULE PO PRN (08:56)
[2020-12-18] MEDS ORDERED: cloNIDine 0.1 MG TABLET PO SCH (09:00)
[2020-12-18] MEDS: allopurinoL 100 MG TABLET PO SCH (09:17)
[2020-12-18] MEDS: ASPIRIN EC 325 MG TABLET PO SCH (09:19)
[2020-12-18] MEDS: TAMSULOSIN 0.4 MG CAPSULE PO SCH (09:19)
[2020-12-18] MEDS ORDERED: SODIUM CHLOR 0.45% KCL 20 MEQ 20 MEQ/1,000 ML BAG IV SCH (11:35)
[2020-12-18] MEDS ORDERED: MAGNESIUM SULF RIDER 2 GM/50 ML PREMIX IV PRN (11:35)
[2020-12-18] MEDS ORDERED: MAGNESIUM SULF RIDER 4 GM/100 ML PREMIX IV PRN (11:35)
[2020-12-18] MEDS ORDERED: ALUMINUM/MAGNES/SIMETH MAX STR 30 ML UDCUP PO PRN (11:35)
[2020-12-18] MEDS ORDERED: ZALEPLON 5 MG CAPSULE PO PRN (11:35)
[2020-12-18] MEDS ORDERED: GLUCAGON 1 MG VIAL IM PRN (11:35)
[2020-12-18] MEDS ORDERED: POTASSIUM CHLORIDE 20 MEQ TABLET PO PRN (11:35)
[2020-12-18] MEDS ORDERED: ONDANSETRON 4 MG/2 ML VIAL IV PRN (11:35)
[2020-12-18] MEDS ORDERED: DEXTROSE 50% 25 GM/50 ML VIAL IV PRN (11:35)
[2020-12-18 12:33] LABS: High Sensitive Troponin I* 1527.6 ng/L (0-78)
[2020-12-18] MEDS: ASCORBIC ACID 500 MG TABLET PO SCH ×2 (12:59→20:55)
[2020-12-18] MEDS: PANTOPRAZOLE 40 MG TABLET PO SCH (13:00)
[2020-12-18] MEDS: FERROUS SULFATE 325 MG TABLET PO SCH (13:01)
[2020-12-18] MEDS: DOCUSATE SODIUM 100 MG CAPSULE PO SCH (13:01)
[2020-12-18] MEDS: cloNIDine 0.1 MG TABLET PO SCH (20:54)
[2020-12-18] MEDS: ROSUVASTATIN 20 MG TABLET PO SCH (20:55)
[2020-12-18] MEDS ORDERED: ROSUVASTATIN 20 MG TABLET PO SCH (21:00)
[2020-12-19 05:14] LABS: Basophils % 0.1 % (0.0-0.8); Eosinophils % 0.1 % (0.00-10.9); Hematocrit 34.1 VOL% (42.0-52.0); Hemoglobin 11.3 GM/DL (14.0-18.0); Immature Granulocytes % 0.5 %; Immature Granulocytes Absolute 0.05 #; Lymphocytes # 0.8 10*3/uL (1.4-4.0); Lymphocytes % 8.1 % (21.2-54.2); Mean Corpuscular HGB Conc 33.1 GM/DL (32-36); Mean Corpuscular Volume 94.5 FL (87-102); Mean Platelet Volume 11.9 FL (9.6-12.0); Monocytes % 6.9 % (1.7-12.7); Neutrophils % 84.3 % (38.7-73.9); Platelet Count 116 T/CUMM (130-400); Red Blood Count 3.61 MC/CUMM (3.8-5.5); Red Cell Distribution Width 15.4 % (9.3-17.3); White Blood Count 10.4 T/CUMM (4-12)
[2020-12-19 05:31] LABS: Alanine Aminotransferase 25 U/L (16-61); Albumin 2.8 G/DL (3.4-5.0); Alkaline Phosphatase 36 U/L (45-117); Aspartate Amino Transferase 21 U/L (0-37); Bilirubin,Total < 0.39 MG/DL (0.2-1.0); Blood Urea Nitrogen 27 MG/DL (7-18); Calcium 8.3 MG/DL (8.5-10.1); Carbon Dioxide 24 MMOL/L (21-32); Estimated Glom Filtration Rate 51 ML/MIN; Glucose 114 MG/DL (74-106); Osmolality,Calculated 284.4 MOS/KG (273-304); Potassium 4.2 MMOL/L (3.5-5.1); Sodium 140 MMOL/L (136-145); Total Protein 6.1 G/DL (6.4-8.2)
[2020-12-19 05:34] LABS: Alanine Aminotransferase 26 U/L (16-61); Albumin 2.8 G/DL (3.4-5.0); Alkaline Phosphatase 37 U/L (45-117); Aspartate Amino Transferase 20 U/L (0-37); Bilirubin,Indirect 0.5 MG/DL (0.0-1.0); Total Protein 5.8 G/DL (6.4-8.2)
[2020-12-19] MEDS ORDERED: FUROSEMIDE 40 MG/4 ML VIAL IV ONE (06:00)
[2020-12-19] MEDS: cloNIDine 0.1 MG TABLET PO SCH ×2 (08:29→21:39)
[2020-12-19] MEDS: ASCORBIC ACID 500 MG TABLET PO SCH ×2 (08:29→21:39)
[2020-12-19] MEDS: ASPIRIN EC 325 MG TABLET PO SCH (08:29)
[2020-12-19] MEDS: allopurinoL 100 MG TABLET PO SCH (08:29)
[2020-12-19] MEDS: TAMSULOSIN 0.4 MG CAPSULE PO SCH (08:29)
[2020-12-19] MEDS: FERROUS SULFATE 325 MG TABLET PO SCH (08:29)
[2020-12-19] MEDS: METOPROLOL TARTRATE 25 MG TABLET PO SCH (08:29)
[2020-12-19] MEDS: PANTOPRAZOLE 40 MG TABLET PO SCH (08:29)
[2020-12-19] MEDS: DOCUSATE SODIUM 100 MG CAPSULE PO SCH (08:29)
[2020-12-19] MEDS: CHLORHEXIDINE 0.12% ORAL RINSE 60 ML BOTTLE SWISH/SPIT SCH ×2 (08:30→21:40)
[2020-12-19] MEDS ORDERED: METOPROLOL TARTRATE 25 MG TABLET PO ONE (10:05)
[2020-12-19] MEDS: ROSUVASTATIN 20 MG TABLET PO SCH (21:38)
[2020-12-19] MEDS: METOPROLOL TARTRATE 50 MG TABLET PO SCH (21:39)
[2020-12-19] MEDS: ACETAMINOPHEN 325 MG TABLET PO PRN (21:39)
[2020-12-20 05:20] LABS: Basophils % 0.3 % (0.0-0.8); Eosinophils # 0.2 10*3/uL (0.0-0.87); Eosinophils % 2.4 % (0.00-10.9); Hematocrit 36.8 VOL% (42.0-52.0); Hemoglobin 12.2 GM/DL (14.0-18.0); Immature Granulocytes % 0.7 %; Immature Granulocytes Absolute 0.07 #; Lymphocytes # 1.7 10*3/uL (1.4-4.0); Lymphocytes % 17.6 % (21.2-54.2); Mean Corpuscular HGB Conc 33.2 GM/DL (32-36); Mean Corpuscular Volume 94.6 FL (87-102); Mean Platelet Volume 11.7 FL (9.6-12.0); Monocytes % 7.3 % (1.7-12.7); Neutrophils % 71.7 % (38.7-73.9); Platelet Count 151 T/CUMM (130-400); Red Blood Count 3.89 MC/CUMM (3.8-5.5); Red Cell Distribution Width 15.4 % (9.3-17.3); White Blood Count 9.6 T/CUMM (4-12)
[2020-12-20 05:55] LABS: Bilirubin,Direct 0.17 MG/DL (0.0-0.20); Bilirubin,Total 0.6 MG/DL (0.2-1.0); Calcium 9.1 MG/DL (8.5-10.1); Osmolality,Calculated 286.3 MOS/KG (273-304); Potassium 3.9 MMOL/L (3.5-5.1); Total Protein 6.3 G/DL (6.4-8.2)
[2020-12-20 05:56] LABS: Alanine Aminotransferase 28 U/L (16-61); Albumin 2.9 G/DL (3.4-5.0); Alkaline Phosphatase 46 U/L (45-117); Aspartate Amino Transferase 18 U/L (0-37); Bilirubin,Indirect 0.3 MG/DL (0.0-1.0); Total Protein 5.7 G/DL (6.4-8.2)
[2020-12-20] MEDS ORDERED: LACTULOSE 20 GM/30 ML UDCUP PO PRN (08:30)
[2020-12-20] MEDS: cloNIDine 0.1 MG TABLET PO SCH ×2 (08:35→20:10)
[2020-12-20] MEDS: ASPIRIN EC 325 MG TABLET PO SCH (08:35)
[2020-12-20] MEDS: METOPROLOL TARTRATE 50 MG TABLET PO SCH ×2 (08:35→20:10)
[2020-12-20] MEDS: ASCORBIC ACID 500 MG TABLET PO SCH ×2 (08:36→20:10)
[2020-12-20] MEDS: TAMSULOSIN 0.4 MG CAPSULE PO SCH (08:36)
[2020-12-20] MEDS: FERROUS SULFATE 325 MG TABLET PO SCH (08:36)
[2020-12-20] MEDS: PANTOPRAZOLE 40 MG TABLET PO SCH (08:37)
[2020-12-20] MEDS: MAGNESIUM HYDROXIDE SUSP 30 ML UDCUP PO PRN (08:37)
[2020-12-20] MEDS: CHLORHEXIDINE 0.12% ORAL RINSE 60 ML BOTTLE SWISH/SPIT SCH ×2 (08:37→20:10)
[2020-12-20] MEDS: DOCUSATE SODIUM 100 MG CAPSULE PO SCH (08:37)
[2020-12-20] MEDS: allopurinoL 100 MG TABLET PO SCH (08:37)
[2020-12-20] MEDS ORDERED: amLODIPine 5 MG TABLET PO SCH (09:00)
[2020-12-20] MEDS: ROSUVASTATIN 20 MG TABLET PO SCH (20:10)
[2020-12-21 06:24] LABS: Basophils % 0.5 % (0.0-0.8); Eosinophils # 0.3 10*3/uL (0.0-0.87); Hematocrit 35.6 VOL% (42.0-52.0); Hemoglobin 11.7 GM/DL (14.0-18.0); Immature Granulocytes % 1.5 %; Immature Granulocytes Absolute 0.12 #; Lymphocytes # 1.6 10*3/uL (1.4-4.0); Lymphocytes % 19.5 % (21.2-54.2); Mean Corpuscular HGB Conc 32.9 GM/DL (32-36); Mean Corpuscular Volume 95.7 FL (87-102); Mean Platelet Volume 11.2 FL (9.6-12.0); Neutrophils % 67.5 % (38.7-73.9); Platelet Count 177 T/CUMM (130-400); Red Blood Count 3.72 MC/CUMM (3.8-5.5)
[2020-12-21 06:37] LABS: Calcium 9.2 MG/DL (8.5-10.1); Osmolality,Calculated 288.1 MOS/KG (273-304); Potassium 3.8 MMOL/L (3.5-5.1)
[2020-12-21] MEDS: CHLORHEXIDINE 0.12% ORAL RINSE 60 ML BOTTLE SWISH/SPIT SCH ×2 (09:20→20:28)
[2020-12-21] MEDS: PANTOPRAZOLE 40 MG TABLET PO SCH (09:21)
[2020-12-21] MEDS: FERROUS SULFATE 325 MG TABLET PO SCH (09:21)
[2020-12-21] MEDS: allopurinoL 100 MG TABLET PO SCH (09:21)
[2020-12-21] MEDS: ASCORBIC ACID 500 MG TABLET PO SCH ×2 (09:21→20:28)
[2020-12-21] MEDS: ASPIRIN EC 325 MG TABLET PO SCH (09:21)
[2020-12-21] MEDS: cloNIDine 0.1 MG TABLET PO SCH ×2 (09:21→20:28)
[2020-12-21] MEDS: TAMSULOSIN 0.4 MG CAPSULE PO SCH (09:21)
[2020-12-21] MEDS: DOCUSATE SODIUM 100 MG CAPSULE PO SCH (09:21)
[2020-12-21] MEDS: METOPROLOL TARTRATE 50 MG TABLET PO SCH ×2 (09:21→20:28)
[2020-12-21] MEDS: amLODIPine 10 MG TABLET PO SCH (09:21)
[2020-12-21] MEDS: ROSUVASTATIN 20 MG TABLET PO SCH (20:28)
[2020-12-21] MEDS: MAGNESIUM HYDROXIDE SUSP 30 ML UDCUP PO PRN (23:24)
[2020-12-22 05:08] LABS: Basophils % 0.4 % (0.0-0.8); Eosinophils # 0.4 10*3/uL (0.0-0.87); Eosinophils % 5.4 % (0.00-10.9); Hemoglobin 11.5 GM/DL (14.0-18.0); Immature Granulocytes % 1.6 %; Immature Granulocytes Absolute 0.12 #; Lymphocytes # 1.6 10*3/uL (1.4-4.0); Lymphocytes % 21.3 % (21.2-54.2); Mean Corpuscular HGB Conc 33.8 GM/DL (32-36); Mean Corpuscular Volume 93.2 FL (87-102); Mean Platelet Volume 10.7 FL (9.6-12.0); Monocytes % 6.7 % (1.7-12.7); Neutrophils % 64.6 % (38.7-73.9); Platelet Count 188 T/CUMM (130-400); Red Blood Count 3.65 MC/CUMM (3.8-5.5); Red Cell Distribution Width 14.7 % (9.3-17.3); White Blood Count 7.3 T/CUMM (4-12)
[2020-12-22 05:24] LABS: Calcium 8.9 MG/DL (8.5-10.1); Osmolality,Calculated 288.1 MOS/KG (273-304)
[2020-12-22 05:27] LABS: Alanine Aminotransferase 92 U/L (16-61); Albumin 2.7 G/DL (3.4-5.0); Alkaline Phosphatase 70 U/L (45-117); Aspartate Amino Transferase 54 U/L (0-37); Bilirubin,Indirect 0.3 MG/DL (0.0-1.0); Blood Urea Nitrogen 27 MG/DL (7-18); Calcium 9.4 MG/DL (8.5-10.1); Carbon Dioxide 26 MMOL/L (21-32); Estimated Glom Filtration Rate 60 ML/MIN; Glucose 112 MG/DL (74-106); Osmolality,Calculated 284.4 MOS/KG (273-304); Potassium 3.8 MMOL/L (3.5-5.1); Sodium 140 MMOL/L (136-145)
[2020-12-22] MEDS: PANTOPRAZOLE 40 MG TABLET PO SCH (08:47)
[2020-12-22] MEDS: amLODIPine 10 MG TABLET PO SCH (08:47)
[2020-12-22] MEDS: DOCUSATE SODIUM 100 MG CAPSULE PO SCH (08:47)
[2020-12-22] MEDS: FERROUS SULFATE 325 MG TABLET PO SCH (08:47)
[2020-12-22] MEDS: cloNIDine 0.1 MG TABLET PO SCH (08:47)
[2020-12-22] MEDS: TAMSULOSIN 0.4 MG CAPSULE PO SCH (08:48)
[2020-12-22] MEDS: ASCORBIC ACID 500 MG TABLET PO SCH (08:48)
[2020-12-22] MEDS: allopurinoL 100 MG TABLET PO SCH (08:48)
[2020-12-22] MEDS: ASPIRIN EC 325 MG TABLET PO SCH (08:48)
[2020-12-22] MEDS: METOPROLOL TARTRATE 50 MG TABLET PO SCH (08:48)
[2020-12-22] MEDS: CHLORHEXIDINE 0.12% ORAL RINSE 60 ML BOTTLE SWISH/SPIT SCH (09:08)
[2020-12-22] MEDS: ACETAMINOPHEN 325 MG TABLET PO PRN (11:05)
[2020-12-22 11:11] VITALS: BP 165/66
== END 2020-12-22 12:54 | disposition home or self-care (01) | DRG 234 ==
LOC: N.CL 05:51 → N.ICU 07:58 → N.CVR 12-17 11:27 → N.TELES 12-18 11:32
PROVIDERS: ADMIT Internal Medicine Cardiovascular Disease
PROC: CLCCHCL (ICD-10-PCS; 2020-12-15 07:45)